=== PATIENT | female | born 1970 | race Caucasian/White ===

== ENCOUNTER 2023-10-14 07:19 | Day surgery (SDC) | payer OTHER ==
[~2023-10-14] VITALS: Ht 170.2 cm; Wt 94.8 kg
[2023-10-14] MEDS: MEPERIDINE 100 MG INJ. 100 MG/ML VIAL ONE (10:01)
[2023-10-14] MEDS: MIDAZOLAM HCL 5 MG/5 ML VIAL ONE ×2 (10:01→10:12)
[2023-10-14 10:33] VITALS: O2SAT 97
[2023-10-14 14:11] VITALS: BP_SYST 99; PULSE 81; RESP 17
== END 2023-10-14 11:35 | disposition home or self-care (01) ==
LOC: SDS 07:19 → SMU 07:20 → SDS 11:35
PROVIDERS: ATTEND Internal Medicine Gastroenterology
DX: Z12.11 Encounter for screening for malignant neoplasm of colon (principal); K63.5 Polyp of colon; K62.1 Rectal polyp; K57.30 Diverticulosis of large intestine without perforation or abscess without bleeding; K64.8 Other hemorrhoids; M19.90 Unspecified osteoarthritis, unspecified site; Z80.0 Family history of malignant neoplasm of digestive organs
CPT/HCPCS: 45380; 99152; 88305; 99153; G0378; J2250; J2175